=== PATIENT | male | born 1980 | race Caucasian/White ===

== ENCOUNTER 2023-09-12 10:45 | Emergency (ER) | payer OTHER, SELFPAY ==
[2023-09-12 10:57] VITALS: BP 133/107; PULSE 90; RESP 18; TEMP 36.4; O2SAT 96; BMI 40.9
--- NOTE | 2023-09-12 11:11 | ED.EXTPRO1 ---
HPI - Extremity Problem General Chief complaint: Extremity Problem, Nontraumatic Stated complaint: L FOOT PAIN/INJURY Time Seen by Provider: 09/12/23 10:55 Source: patient Mode of arrival: walk-in Limitations: no limitations History of Present Illness HPI Narrative: 43-year-old male presents for pain in his left foot. This time he has had it for few days and there was no trauma. It happened 4 times over the past 2 years, the last time was just after [place], 3 months ago. He saw a chiropractor once. He does not have pain at the base of his toes. When he hangs his leg down it hurts more. Flexing and extending his foot make it worse. Related Data Home Medications ?Medication ?Instructions ?Recorded ?Confirmed hydrochlorothiazide 25 mg tablet 25 mg PO QDAY 09/12/23 09/12/23 lisinopril 5 mg tablet 5 mg PO QDAY 09/12/23 09/12/23 paroxetine HCl 20 mg tablet 20 mg PO QDAY 09/12/23 09/12/23 Previous Rx's ?Medication ?Instructions ?Recorded acetaminophen 300 mg-codeine 30 mg 1 tab PO Q6H PRN pain 5 days #20 09/12/23 tablet tabs ibuprofen 800 mg tablet 800 mg PO Q8H PRN pain #20 tabs 09/12/23 Allergies Allergy/AdvReac Type Severity Reaction Status Date / Time No Known Drug Allergies Allergy Verified 09/12/23 10:55 Review of Systems ROS Narrative A ten point review of systems is negative except as noted above. Exam Narrative Exam Narrative: Nurses note and vital signs reviewed and patient is not hypoxic. General: The patient appears well and in no apparent distress. Patient is resting comfortably on cart. Skin: Warm, dry, no pallor noted. There is no rash noted. Head: Normocephalic, atraumatic Eye: Normal conjunctiva, no drainage Ears, Nose, Mouth, and Throat: oral mucosa is moist. Nares patent. Cardiovascular: Regular Rate and Rhythm Respiratory: Patient is in no distress, no accessory muscle use, lungs are clear to auscultation, no wheezing, rales or rhonchi Back: non-tender GI: Soft and nontender Musculoskeletal: The left foot has some mild swelling of the dorsum. There is some mild erythema. No open area or bruising or rash otherwise. No tenderness at the first MTP joint. Neurological: A&O, normal speech Psychiatric: Cooperative Constitutional Vital Signs, click to edit/add: Last Vital Signs Temp 97.6 F 09/12/23 10:57 Pulse 90 09/12/23 10:57 Resp 18 09/12/23 10:57 BP 133/107 H 09/12/23 10:57 Pulse Ox 96 09/12/23 10:57 O2 Del Method Room Air 09/12/23 10:57 Course Vital Signs Vital signs: Vital Signs Temperature 97.6 F 09/12/23 10:57 Pulse Rate 90 09/12/23 10:57 Respiratory Rate 18 09/12/23 10:57 Blood Pressure 133/107 H 09/12/23 10:57 Pulse Oximetry 96 09/12/23 10:57 Oxygen Delivery Method Room Air 09/12/23 10:57 Temperature 97.6 F 09/12/23 10:57 Pulse Rate 90 09/12/23 10:57 Respiratory Rate 18 09/12/23 10:57 Blood Pressure 133/107 H 09/12/23 10:57 Pulse Oximetry 96 09/12/23 10:57 Oxygen Delivery Method Room Air 09/12/23 10:57 MDM - Extremity (Nontraumatic) MDM Narrative Medical decision making narrative: X-ray per radiologist shows no acute findings and he is referred to Dr. Gage. I do not clinically suspect gout. Treatment diagnosis and follow-up were discussed with the patient. The possibility of tendinitis was discussed. Differential Diagnosis Differential diagnosis: Likely other (Tendinitis, arthritis, occult fracture, stress fracture) Imaging Data Foot x-ray: Radiologist's impression: ITS Impressions Foot X-Ray 09/12/23 11:35 IMPRESSION: No acute abnormality Electronically authenticated by: ROXANNE LI Date: 09/12/2023 12:02 Discharge Plan Discharge Stand Alone Forms: Portal Instructions Chief Complaint: Extremity Problem, Nontraumatic Clinical Impression: Foot pain, left Patient Disposition: Home, Self-Care Time of Disposition Decision: 12:30 Condition: Good Mode of Transportation: Private Vehicle Prescriptions / Home Meds: New acetaminophen-codeine 300-30 mg tablet 1 tab PO Q6H PRN (Reason: pain) 5 Days Qty: 20 0RF ibuprofen 800 mg tablet 800 mg PO Q8H PRN (Reason: pain) Qty: 20 0RF No Action hydrochlorothiazide 25 mg tablet 25 mg PO QDAY lisinopril 5 mg tablet 5 mg PO QDAY paroxetine HCl 20 mg tablet 20 mg PO QDAY Print Language: Upper Sorbian Instructions: Arthralgia (ED) Additional Instructions: Follow-up with Dr. Gage Referrals: Jonah Murray MD [Primary Care Provider] - 1 week
--- NOTE | 2023-09-12 11:35 | XR_ITS ---
[address] [address] Patient Name: MARTINA MURILLO MRN: [id number] date: 1980 Sex: M Assigned Patient Location: ER Current Patient Location: ER Accession/Order Number: [id number] Exam Date: 09/12/2023 11:28 Report Date: 09/12/2023 12:02 At the request of: [facility] [employer] Procedure: XR foot LT min 3V PROCEDURE: XR foot LT min 3V COMPARISON: None. HISTORY: Atraumatic pain FINDINGS: BONES:No acute fracture or dislocation. Mild enthesopathic spurring of the calcaneus at the Achilles and plantar insertions. SOFT TISSUES:Negative. No visible soft tissue swelling. EFFUSION:None visible. OTHER: Negative. XR/XR foot LT min 3V IMPRESSION: No acute abnormality Electronically authenticated by: ROXANNE LI Date: 09/12/2023 12:02
[2023-09-12] MEDS: ACETAMINOPHEN 300 MG/ 30 MG CODEINE TABLET 1 TAB PO (12:41)
== END 2023-09-12 12:50 | disposition home or self-care (01) ==
PROVIDERS: Emergency Provider Emergency Medicine; PCP Family Medicine
DX: M79.672 Pain in left foot (principal); Z79.899 Other long term (current) drug therapy
CPT/HCPCS: 73630; 99283

== ENCOUNTER 2023-09-17 08:13 | Outpatient (OUT) | payer OTHER, SELFPAY ==
[2023-09-17 08:41] LABS: Basophils Absolute Auto 0.1 10^3/uL (0.0-0.1); Eosinophils Absolute Auto 0.1 10^3/uL (0.0-0.7); Eosinophils Percent Auto 1.8 % (0.9-7.0); Hematocrit 44.8 % (42.0-54.0); Hemoglobin 14.2 g/dL (14.0-18.0); Immature Granulocytes Abs Auto 0.02 10^3/uL (0.00-0.03); Immature Granulocytes Pct Auto 0.4 % (0.0-0.5); Lymphocytes Absolute Auto 1.7 10^3/uL (1.2-3.8); Lymphocytes Percent Auto 34.2 % (20.5-60.0); Mean Corpuscular HGB Conc 31.7 g/dL (29.9-35.2); Mean Corpuscular Hemoglobin 28.5 pg (25.9-34.0); Mean Corpuscular Volume 89.8 fL (80.0-94.0); Mean Platelet Volume 9.7 fL (9.5-13.5); Monocytes Absolute Auto 0.5 10^3/uL (0.3-0.8); Monocytes Percent Auto 10.1 % (1.7-12.0); Neutrophils Absolute Auto 2.6 10^3/uL (1.4-6.5); Neutrophils Percent Auto 52.5 % (43.0-75.0); Platelet Count 287 10^3/uL (150-450); Red Blood Count 4.99 10^6/uL (4.70-6.10); Red Cell Distribution Width 13.8 % (11.0-15.0); White Blood Count 4.9 10^3/uL (4.0-11.0)
[2023-09-17 09:16] LABS: Erythrocyte Sedimentation Rate 30 mm/hr (<=15)
[2023-09-17 11:02] LABS: Alanine Aminotransferase 27 U/L (16-63); Albumin Globulin Ratio 1.2; Albumin Level 3.7 g/dL (3.4-5.0); Alkaline Phosphatase 72 U/L (46-116); Anion Gap 11.5; Aspartate Amino Transferase 14 U/L (15-37); BUN Creatinine Ratio 20.6; Bilirubin Total 0.3 mg/dL (0.2-1.0); C Reactive Protein <0.50 mg/dL (<=0.50); Calcium 8.9 mg/dL (8.5-10.1); Carbon Dioxide 28.8 mmol/L (21.0-32.0); Chloride 105 mmol/L (98-107); Estimated GFR (African America >60 (>=60); Estimated GFR (Non-African Ame >60 (>=60); Globulin 3.1 g/dL; Glucose 100 mg/dL (74-106); Potassium 4.3 mmol/L (3.5-5.1); Sodium 141 mmol/L (136-145); Total Protein 6.8 g/dL (6.4-8.2); Uric Acid 7.5 mg/dL (3.5-7.2)
== END 2023-09-17 08:14 | disposition home or self-care (01) ==
LOC: LAB 08:13
PROVIDERS: PCP Family Medicine; Visit Provider Podiatrist Foot & Ankle Surgery
DX: M79.672 Pain in left foot (principal)
CPT/HCPCS: 36415; 80053; 84550; 85025; 85652; 86140

== ENCOUNTER 2023-09-20 15:30 | Outpatient (OUT) | payer OTHER, SELFPAY ==
--- NOTE | 2023-09-20 | MR_ITS ---
The [address] [address] Patient Name: MARTINA MURILLO MRN: [id number] date: 1980 Sex: M Assigned Patient Location: MRI Current Patient Location: Accession/Order Number: [id number] Exam Date: 09/20/2023 15:40 Report Date: 09/21/2023 10:06 At the request of: AKASH GONZALEZ Procedure: MR foot LT wo con EXAM: MR foot LT wo con HISTORY: neuroma COMPARISON: 09/12/2023 TECHNIQUE: MRI images obtained with multiple sequences. MRI of the left foot without contrast. Sequences obtained by standard department protocol. FINDINGS: Extensor and flexor tendons are intact. No abnormal signal of the intrinsic musculature of the foot. Nonspecific edema of the proximal aspect of the third metatarsal, concerning for stress reaction or small stress fracture (sagittal PD fat-sat image 6). Note: This protocol has limited fat saturation/STIR sequences, somewhat limiting evaluation. Achilles tendon and plantar fascia are intact. No significant joint degeneration. Muscle bulk of the forefoot is preserved. No definitive soft tissue mass. Evaluation limited without intravenous contrast. MR/MR foot LT wo con IMPRESSION: 1. Nonspecific edema of the proximal aspect of the third metatarsal, concerning for stress reaction or small stress fracture (sagittal PD fat-sat image 6). Note: This protocol has limited fat saturation/STIR sequences, somewhat limiting evaluation. 2. No definitive soft tissue mass. Evaluation limited without intravenous contrast. 3. Extensor and flexor tendons are intact. Electronically authenticated by: GENIE CARVALHO Date: 09/21/2023 10:06
== END 2023-09-20 15:31 | disposition home or self-care (01) ==
LOC: MRI 15:33
PROVIDERS: PCP Family Medicine; Visit Provider Podiatrist Foot & Ankle Surgery
DX: G57.62 Lesion of plantar nerve, left lower limb (principal)
CPT/HCPCS: 73718

== ENCOUNTER 2024-04-30 07:26 | Outpatient (OUT) | payer OTHER, SELFPAY ==
[2024-04-30 07:47] LABS: Basophils Percent Auto 0.9 % (0.2-2.0); Eosinophils Absolute Auto 0.1 10^3/uL (0.0-0.7); Eosinophils Percent Auto 1.3 % (0.9-7.0); Hematocrit 47.9 % (42.0-54.0); Hemoglobin 15.8 g/dL (14.0-18.0); Immature Granulocytes Abs Auto 0.01 10^3/uL (0.00-0.03); Immature Granulocytes Pct Auto 0.2 % (0.0-0.5); Lymphocytes Absolute Auto 1.8 10^3/uL (1.2-3.8); Mean Corpuscular Hemoglobin 29.2 pg (25.9-34.0); Mean Corpuscular Volume 88.5 fL (80.0-94.0); Mean Platelet Volume 9.7 fL (9.5-13.5); Monocytes Absolute Auto 0.4 10^3/uL (0.3-0.8); Monocytes Percent Auto 8.7 % (1.7-12.0); Neutrophils Absolute Auto 2.3 10^3/uL (1.4-6.5); Neutrophils Percent Auto 48.9 % (43.0-75.0); Platelet Count 253 10^3/uL (150-450); Red Blood Count 5.41 10^6/uL (4.70-6.10); Red Cell Distribution Width 13.6 % (11.0-15.0); White Blood Count 4.6 10^3/uL (4.0-11.0)
[2024-04-30 08:26] LABS: Estimated Average Glucose 105 mg/dL; Glycohemoglobin A1C 5.3 % (4.5-6.2)
[2024-04-30 10:13] LABS: Prostate Specific Antigen Scrn 0.68 ng/mL (<=4.00)
[2024-04-30 10:47] LABS: Alanine Aminotransferase 34 U/L (16-63); Albumin Globulin Ratio 1.2; Albumin Level 3.9 g/dL (3.4-5.0); Alkaline Phosphatase 100 U/L (46-116); Anion Gap 14.6; Aspartate Amino Transferase 13 U/L (15-37); BUN Creatinine Ratio 15.6; Bilirubin Direct 0.1 mg/dL (0.0-0.2); Bilirubin Total 0.4 mg/dL (0.2-1.0); Calcium 9.4 mg/dL (8.5-10.1); Carbon Dioxide 24.8 mmol/L (21.0-32.0); Chloride 105 mmol/L (98-107); Chol HDL Ratio 3.1; Cholesterol 184 mg/dL (<=200); Estimated GFR (African America >60 (>=60 mL/min/1.73m^2); Estimated GFR (Non-African Ame >60 (>=60 mL/min/1.73m^2); Globulin 3.2 g/dL; Glucose 93 mg/dL (74-106); HDL Cholesterol 59 mg/dL (40-60); LDL Cholesterol Calculated 108.6 mg/dL; Potassium 4.4 mmol/L (3.5-5.1); Sodium 140 mmol/L (136-145); Thyroid Stimulating Hormone 2.255 uIU/mL (0.358-3.740); Total Protein 7.1 g/dL (6.4-8.2); Triglycerides 82 mg/dL (<=150); VLDL CHOLESTEROL 16.4 mg/dL
== END 2024-04-30 07:27 | disposition home or self-care (01) ==
LOC: LAB 07:28
PROVIDERS: PCP Family Medicine; Visit Provider Family Medicine
DX: R73.03 Prediabetes (principal); Z79.899 Other long term (current) drug therapy; E66.812 Obesity, class 2; E66.01 Morbid (severe) obesity due to excess calories; Z68.37 Body mass index [BMI] 37.0-37.9, adult; Z12.5 Encounter for screening for malignant neoplasm of prostate
CPT/HCPCS: 36415; 80048; 80061; 80076; 83036; 84443; 85025; G0103